=== PATIENT | female | born 1965 | race Two or more races ===

== ENCOUNTER → 2025-11-06 | Emergency (ER) | payer OTHER ==
[~2025-11-06] VITALS: Ht 165.1 cm; Wt 65.8 kg
[~2025-11-06] MED LIST: PANTOPRAZOLE SODIUM 40 MG/VIAL VIAL IV STA
[2025-11-06 04:27] LABS: BASO % 1.3 % (0.1-1.2); EOS # 0.18 (0.04-0.54); EOS % 2.7 % (0.7-7.0); LYMPH # 3.46 (1.18-3.74); LYMPH % 51.6 % (19.3-53.1); MEAN PLATELET VOLUME 9.00 fl (9.4-12.4); MONO # 0.57 (0.24-0.82); MONO % 8.5 % (4.7-12.5); NEUT # 2.39 (1.56-6.13); NEUT % 35.8 % (34.0-71.1); RED CELL DISTRIBUTION WIDTH 12.6 % (11.6-14.4)
[2025-11-06 04:35] LABS: INR 1.16
[2025-11-06 04:36] LABS: BUN CREA RATIO 22.0 (7.0-25.0); CREATININE SERUM 0.63 mg/dL (0.55-1.02); GFR 97.4; GLUCOSE FASTING 98.0 mg/dL (65-100); OSMOLALITY SERUM 291.0 MOSM/KG (275-295)
== END | disposition left against medical advice (07) ==
LOC: ER 03:34
PROVIDERS: General Practice
DX: N93.8 Other specified abnormal uterine and vaginal bleeding (principal); Z91.013 Allergy to seafood